=== PATIENT | female | born 1965 | race African-American/Black ===

== ENCOUNTER 2019-03-17 14:27 | Inpatient (IN) ==
[2019-03-17] MEDS ORDERED: VANCOMYCIN 1 GM/NS 1 GM/250 ML IVPB IV ONE (14:49)
[2019-03-17] MEDS ORDERED: NS 1,000 ML IV ONE ×3 (14:49→19:14)
[2019-03-17] MEDS ORDERED: NS 500 ML IV ONE ×2 (14:49→15:23)
[2019-03-17] MEDS ORDERED: PITRESSIN 40 UNIT in NS 100 ML IV SCH (15:30)
[2019-03-17] MEDS ORDERED: EPINEPHRINE 8 MG in D5W 250 ML IV SCH (15:30)
[2019-03-17] MEDS ORDERED: LEVOPHED 8 MG in D5 1/2 NS 250 ML IV SCH (15:30)
--- NOTE | 2019-03-17 15:30 | Diag Imaging Result Doc PS360 ---
EXAM: CHEST-1 VIEW HISTORY: Sepsis protocol TECHNIQUE: Single view COMPARISON: 08/10/2010 FINDINGS: The lungs are well expanded. The heart is not enlarged. The vessels are not distended. There are no infiltrates. No effusion identified. IMPRESSION: No pneumonia Electronically signed by Jaswinder Roque 03/17/2019 3:28 PM
[2019-03-17 15:50] LABS: URINE SOURCE CATH
[2019-03-17 15:54] LABS: BILIRUBIN URINE SMALL (NEGATIVE); BLOOD URINE MODERATE (NEGATIVE); COLOR YELLOW; GLUCOSE URINE NEGATIVE (NEGATIVE); KETONE URINE NEGATIVE (NEGATIVE); LEUKOCYTES URINE LARGE (NEGATIVE); NITRITE URINE NEGATIVE (NEGATIVE); PROTEIN URINE 200 mg/dL (NEGATIVE); SP GRAVITY URINE 1.012; TURBIDITY URINE HAZY (CLEAR); UROBILINOGEN URINE 4 mg/dL (NORMAL)
[2019-03-17 15:57] LABS: BASO# 0.02 X1000 (0.0-0.2); BASO% 0.1 % (0.0-0.8); EOS# 0.06 X1000 (0.0-0.7); EOS% 0.4 % (0.0-10.0); HEMATOCRIT 39.8 % (37.0-47.0); HEMOGLOBIN 12.9 g/dL (12.0-16.0); IMM GRAN# 0.21 X1000 (0.0-0.04); IMM GRAN% 1.5 % (0.0-0.5); LYMPH# 1.38 X1000 (1.2-3.4); LYMPH% 9.6 % (20.5-51.1); MCHC 32.4 g/dL (33-37); MCV 83.4 FL (81-99); MONO# 1.01 X1000 (0.11-0.59); MPV 10.7 FL (7.4-10.4); NEUT% 81.4 % (42.2-75.2); PLT 223 X1000 (130-400); RBC 4.77 XMIL (4.2-5.4); WBC 14.38 X1000 (4.8-10.8)
[2019-03-17 15:57] LABS: UR EPITHELIAL CELLS <10 /HPF (<10); URINE BACTERIA 4+ /HPF; URINE WBC TNTC /HPF (<10)
[2019-03-17] MEDS ORDERED: MORPHINE IV ONE (16:22)
[2019-03-17 16:24] LABS: ALB/GLOB RATIO 0.9; ALBUMIN 3.2 g/dL (3.5-5.0); CREATININE 1.5 mg/dL (0.5-0.9); TOTAL BILIRUBIN 2.36 mg/dL (0.20-1.00); TOTAL PROTEIN 6.9 g/dL (6.3-8.3)
[2019-03-17 16:24] LABS: URINE CASTS NONE SEEN; URINE CRYSTALS NONE SEEN; URINE SMALL ROUND CELLS TRANS PRESENT; URINE YEAST NONE SEEN
[2019-03-17 16:26] LABS: POTASSIUM 2.5 mmol/L (3.5-5.1)
[2019-03-17] MEDS ORDERED: POTASSIUM CHLORIDE 20% LIQUID PO ONE (16:28)
[2019-03-17 16:33] LABS: INR 1.27; PROTIME 16.1 Seconds (11.0-16.0)
[2019-03-17 16:34] LABS: PTT 35.1 Seconds (22.3-41.8)
[2019-03-17 16:43] LABS: CK INDEX 0.8 (0.0-2.5); CK-MB 1.77 ng/mL (0.0-5.0)
[2019-03-17] MEDS ORDERED: MAXIPIME 2 GM in NS 100 ML IV ONE (17:00)
--- NOTE | 2019-03-17 17:43 | PROVIDER DOCUMENTATION ---
This chart was entered by Fatuma Beasley Scribe, acting as scribe for Remberto Head MD. HPI-Abdominal Pain/GI Problem - General Chief Complaint: Abdominal Pain Stated Complaint: FEMALE /WEAKNESS Time Seen by Provider: 03/17/19 14:37 Source: patient, EMS ([facility]) Allergies/Adverse Reactions: Patient Allergies Allergy/AdvReac Type Severity Reaction Status Date / Time No Known Allergies Allergy Verified 03/17/19 15:50 - History of Present Illness-ABD Nature of Presenting Problems: 54 yobf presents to the ed via ems with c/o UTI sx for 4 days. pt sts has dysuria, hematuria, lumbar back pain and suprapubic pain, fever, chills, n/v/d, fatigue and weakness. pt sts had a dr appointment but missed it "I was just so tired doc" Abdominal Pain Onset Location: reports: suprapubic Pain Radiation: reports: back Quality of Pain: reports: aching, burning Severity in ED: reports: moderate Onset/Duration: reports: 4 days ago Timing: reports: still present, constant, getting worse Activities at Onset: reports: light activity Exposure to sick contacts?: No Modifying Factors: worse with: urinating Associated Symptoms: reports: back/neck pain, diarrhea, fatigue, fever/chills, genitourinary problems, malaise, muscle aches, nausea, vomiting, weakness. denies: chest pain, dizziness, headaches, shortness of breath, trouble walking Last BM: last night Dark Stools Present?: reports: none noticed Rectal Bleeding: reports: none # of Diarrhea Episodes: 3 Rectal Pain: reports: none # of Vomiting Episodes: 2 Bruising or Bleeding Gums?: No Similar Symptoms Previously?: Yes (frequent UTI) Recently seen or treated by another doctor?: No Review of Systems - Adult - REVIEW OF SYSTEMS - ADULT Constitutional: reports: see HPI, chills, fever, fatique Eyes: reports: no symptoms reported Ears, Nose, Mouth & Throat: reports: no symptoms reported Cardiovascular: denies: chest pain, palpitations Respiratory: denies: cough, shortness of breath, wheezing Gastrointestinal: reports: see HPI, abdominal pain (suprapubic), diarrhea, nausea, vomiting Genitourinary: reports: see HPI, dysuria, frequent UTI's, hematuria Musculoskeletal: reports: see HPI, back pain. denies: neck pain Integumentary: reports: no symptoms reported Neurological: denies: dizziness/vertigo, headache/migraines Psychiatric: reports: no symptoms reported Endocrine: reports: no symptoms reported Hematologic/Lymphatic: reports: no symptoms reported Allergic/Immunologic: reports: no symptoms reported All Other Systems: Reviewed and Negative Past History - Adult - PAST MEDICAL HISTORY-ADULT Review of Records: reports: Old Records Reviewed, Nursing Assessment Review, Medications Reviewed, Social history reviewed & non-contributory. Major Childhood Illnesses: reports: denies history Cardiovascular: reports: HTN, hyperlipidemia Respiratory: reports: denies history Gastrointestinal: reports: Crohn's, GERD Obstetrical/Gynecological: reports: denies history Genitourinary: reports: denies history Musculoskeletal: reports: denies history Neurological: reports: denies history Psychiatric: reports: denies history Endocrine/Immune: reports: denies history Other Conditions: reports: denies history - PRIOR SURGERIES/PROCEDURES Surgical/Procedure History: reports: colonoscopy, - IMMUNIZATION STATUS Childhood Immunizations: See Nurse Assessment Flu Vaccine: See Nurse Assessment - FAMILY HISTORY Family History: reviewed, not pertinent - SOCIAL HISTORY Smoking: denies Substance Use: denies Living Situation: family Physical Exam-General - PHYSICAL EXAM-ADULT Initial Vital Signs Reviewed: Yes (temp-102.8 HR-110 pulse Ox-93% A) - CONSTITUTIONAL General Appearance: appears well, alert, no apparent distress, obese - EYES Eyes: PERRL/EOMI, pink conjunctivae - HEAD, EARS, NOSE, MOUTH & THROAT HENMT: moist mucous membranes - NECK Neck: non-tender, full range of motion, supple, normal inspection - RESPIRATORY Respiratory: chest non-tender, lungs clear, normal breath sounds - CARDIOVASCULAR Cardiovascular: tachycardia (110) - CHEST (BREASTS) Chest/Breast: deferred - GASTROINTESTINAL (ABDOMEN) Abdominal Exam: normal bowel sounds, soft, tenderness (suprapubic) - GENITOURINARY Female Genitalia/Pelvic Exam: deferred, other (c/o hematuria and dysuria) Rectal Exam: deferred Hemoccult Exam: deferred - LYMPHATIC Lymphatic: no adenopathy - MUSCULOSKELETAL Back Exam: normal inspection, no CVA tenderness, no vertebral tenderness, other (lumbar pain) Extremity: normal range of motion, non-tender, normal inspection, no pedal edema , no calf tenderness, normal capillary refill - SKIN Integumentary: normal color, normal turgor, warm/dry - NEUROLOGIC Neurologic: grossly normal - PSYCHIATRIC Psych/Mental Status: normal mood/affect, normal thought content, normal thought process, oriented x 3 Progress - PLAN OF CARE/RESULTS Progress/Plan/Lab Results: Vital Signs - 8 hr 03/17/19 14:34 03/17/19 14:40 Temperature 102.8 F H 102.4 F H Pulse Rate 110 H 111 H Respiratory Rate 20 16 Blood Pressure 113/76 125/81 O2 Sat by Pulse Oximetry 93 L 98 Orders Category Date Time Status Cardiac Monitoring DIRECTED Care 03/17/19 14:49 Active IV Insertion ORDERED Care 03/17/19 14:49 Active IV Insertion ORDERED Care 03/17/19 14:49 Active Intake and Output-Strict ORDERED Care 03/17/19 14:49 Active Notify MD of + Sepsis Screen NOW Care 03/17/19 14:49 Active Notify MD/PA/EDUCATION ASSISTANT for exam NOW Care 03/17/19 14:49 Active Notify Physician As Ordered Care 03/17/19 14:49 Active Repeat Vital Signs .Blood Pressure Care 03/17/19 14:49 Active Repeat Vital Signs .Heart Rate Care 03/17/19 14:49 Active Repeat Vital Signs .Oxygen Saturation Care 03/17/19 14:49 Active Repeat Vital Signs .Respiratory Rate Care 03/17/19 14:49 Active Repeat Vital Signs .Temp Care 03/17/19 14:49 Active CHEST-1 VIEW [RAD] Stat Exams 03/17/19 14:49 Ordered BLOOD CULTURE [BLDCUL] Stat Lab 03/17/19 14:49 Uncollected CBC WITH DIFF [HEME] Stat Lab 03/17/19 14:49 Uncollected CK PROFILE [SP CHEM] Stat Lab 03/17/19 14:49 Uncollected COMPREHENSIVE METABOLIC PANEL [CHEM] Stat Lab 03/17/19 14:49 Uncollected LACTATE, PLASMA [CHEM] Q3H Lab 03/17/19 15:00 Uncollected LACTATE, PLASMA [CHEM] Q3H Lab 03/17/19 18:00 Uncollected LACTATE, PLASMA [CHEM] Q3H Lab 03/17/19 21:00 Uncollected LACTATE, PLASMA [CHEM] Timed Lab 03/17/19 14:49 Uncollected PROTIME WITH INR [COAG] Stat Lab 03/17/19 14:49 Uncollected PTT [COAG] Stat Lab 03/17/19 14:49 Uncollected TROPONIN T Stat Lab 03/17/19 14:49 Uncollected URINALYSIS W/POSS RFLX CULT [URINALYSIS] Stat Lab 03/17/19 14:49 Uncollected 0.9% Sodium Chloride Inj [Ns] 1,000 ml Med 03/17/19 14:49 Discontinued IV As Directed mls/hr 0.9% Sodium Chloride Inj [Ns] 500 ml Med 03/17/19 14:49 Discontinued IV 999 mls/hr CefEPIME [Maxipime] 2 gm Med 03/17/19 14:49 Ordered 0.9% Sodium Chloride Inj [Ns] 100 ml IV NOW Vancomycin 1 gm/Ns Med 03/17/19 14:49 Active 1 gm in 250 ml IV NOW Oxygen Device Stat Oth 03/17/19 14:49 Active Result Diagrams: 03/17/19 15:38 03/17/19 15:38 - REASSESSMENT Reassessment #1 Time Reassessed: 17:33 Status: improving - XRAY 1 XRAY: Bilateral XRAY Study: Chest Impression: See EMR Report (EXAM: CHEST-1 VIEW HISTORY: Sepsis protocol TECHNIQUE: Single view COMPARISON: 08/10/2010 FINDINGS: The lungs are well expanded. The heart is not enlarged. The vessels are not distended. There are no infiltrates. No effusion identified. IMPRESSION: No pneumonia Electronically signed by Jaswinder Roque 03/17/2019 3:28 PM 03/17/19 1528 Interpreting Physician: Jaswinder Roque MD Dictated Date/Time: 03/17/19 1527 cc: Remberto Head MD;) - CONSULTS/PCP/HOSPITALIST Notification #1 *Consult/PCP/Hospitalist*: dr cohen for dr glover pt Time Discussed: 17:33 Consult Disposition: Admit Departure - Departure Date of Disposition Decision: 03/17/19 Time of Disposition Decision: 15:00 DIAGNOSIS: Pyelonephritis, Hypokalemia Disposition: ADMITTED INPATIENT 09 Certified Medical Emergency: Emergent Condition: Good Referrals and Follow-Ups: Alisa Glover MD [Primary Care Provider] - - Critical Care Note This patient required my direct & personal management of CC.: Yes Total Time (mins): 38 Critical Care Statement: This patient required my direct personal management to treat or rule out processes, the absence of which, could potentiallly result in sudden, clinically significant life or limb threatening deterioration. Attestation - Physician/ YVETTE Attestation Patient care was provided by Advanced Practice Provider:: No The physician spent face to face time with patient:: Yes Advanced Practice Provider documentation review:: Supervising physician onsite and consulted in the evaluation and care of this patient. The physician did have a face to face encounter with the patient. This chart was documented by the indicated scribe, (Fatuma Beasley Scribe) and accurately reflects the services I performed and decisions made by me, Remberto Head MD, as attested by the provider's signature.
[2019-03-17] MEDS ORDERED: ZOFRAN IV PRN (19:14)
--- NOTE | 2019-03-17 19:58 | HISTORY AND PHYSICAL ---
HISTORY OF PRESENT ILLNESS: Ms. Lugo who is a 54-year-old female started getting sick since yesterday. She had some fever with chills. She has severe dysuria. This morning she noticed some pus and blood in the urine, and the temperature went up, and she came to the emergency room this afternoon. She was found to have acute urinary tract infection. She was having very elevated white count and was very septic when she came to the emergency room. PAST SURGICAL HISTORY: Reveals history of 2 sections. SOCIAL HISTORY: She is a nonsmoker; however, she drinks some red wine 3 times a week. She never gets drunk. ALLERGIES: She is not allergic to any medications. PAST MEDICAL HISTORY: She has a history of hypertension, hyperlipidemia, and history of severe anxiety with depression. She is seeing a psychiatrist. MEDICATIONS: She has been on Pristiq 50 mg daily as well as on lamotrigine 25 mg once a day. Her other medications include atenolol with the diuretic once a day, potassium daily, Nexium 40 mg daily, pravastatin 40 mg daily. REVIEW OF SYSTEMS: Other than fever, generalized weakness, which is from hypokalemia according to her, is noncontributory. PHYSICAL EXAMINATION: GENERAL: The patient is alert, oriented. VITAL SIGNS: Reveal temperature when she came in it was 102, blood pressure 136/77, O2 saturation was 93, respiratory rate 18 per minute. HEENT: Head normocephalic. Pupils PERRLA. Fundus examination not done. NECK: Supple. JVP normal. ENT examination unremarkable. There is no evidence of lymphadenopathy, thyroid enlargement, pedal edema, calf tenderness, anemia, cyanosis or clubbing. Pedal pulses were felt. BREAST EXAM: Not done. CHEST: Normal to inspection. LUNGS: Clear on auscultation. PMI in the normal position. HEART: Sounds normal. No murmur, gallop or rub noted. ABDOMEN: Nondistended. Hernial orifices normal. There is no guarding or rigidity, free fluid, masses, or organomegaly. Bowel sounds normal. There is definite tenderness in the suprapubic area as well as left lower quadrant of abdomen. RECTAL EXAM: Deferred. PELVIC EXAM: Deferred at the present time. CENTRAL NERVOUS SYSTEM: Higher functions normal. Cranial nerves normal. Motor and sensory system examination unremarkable. Deep tendon reflexes normal. Plantars downgoing. Skull and spine examination normal for age. No cerebellar signs or signs of meningeal irritation on locomotor exam. SKIN EXAM: Unremarkable. CLINICAL IMPRESSION: The patient is very septic from acute urinary tract infection. This could be pyelonephritis or acute cystitis. She has history of hypertension, severe hypokalemia, history of depression, anxiety with depression under care of psychiatrist and hyperlipidemia as well as hypertension. PLAN: After getting cultures at the present time, continue the Rocephin and depending on the culture, we may have to change antibiotics. She is a patient of Dr. SALOME Martin. cc: Kulwinder Aggarwal MD
[2019-03-17] MEDS: ROCEPHIN 1 GM in NS 50 ML IV SCH (20:39)
[2019-03-17] MEDS: MORPHINE IV PRN (20:42)
[2019-03-17] MEDS: LOVENOX SUBQ SCH (22:29)
[2019-03-17] MEDS: KLOR-CON PO SCH (22:29)
[2019-03-17] MEDS ORDERED: TYLENOL PO PRN (23:46)
[2019-03-18] MEDS: NS + KCL 20 MEQ 1,000 ML IV SCH ×2 (00:28→17:04)
[2019-03-18 07:58] LABS: CALCIUM 7.9 mg/dL (8.8-10.2); CREATININE 1.4 mg/dL (0.5-0.9); POTASSIUM 3.2 mmol/L (3.5-5.1)
--- NOTE | 2019-03-18 09:33 | Diag Imaging Result Doc PS360 ---
CT RENAL STONE SEARCH - 03/18/2019 INDICATION: Kidney stone left COMPARISON: 08/04/2010 FINDINGS: The lung bases are clear and the heart size is normal. There is some minimal linear atelectasis in the lower lobes. There are numerous phleboliths adjacent to the ureters bilaterally. No definite ureteral stone. No hydronephrosis or hydroureter. There is significant increase in bilateral perinephric edema/stranding. There is trace pelvic free fluid. Urinary bladder is collapsed. No definite bowel obstruction or inflammation. Bones are intact. IMPRESSION: 1. Small bilateral nonobstructing renal stones. 2. Significant perinephric stranding bilaterally, nonspecific. This could represent bilateral nephritis of uncertain etiology. 3. Trace pelvic free fluid, nonspecific. This exam was performed using automated exposure control, adjustment of mA or kV according to patient size, and/or use of iterative reconstruction technique Electronically signed by Jacob Mejias 03/18/2019 9:30 AM
[2019-03-18] MEDS: KLOR-CON PO SCH ×2 (10:08→20:54)
[2019-03-18] MEDS: HYDROCHLOROTHIAZIDE PO SCH (10:09)
[2019-03-18] MEDS: TENORMIN PO SCH (10:10)
[2019-03-18] MEDS: ROCEPHIN 1 GM in NS 50 ML IV SCH ×2 (10:10→20:55)
[2019-03-18] MEDS: POTASSIUM CHLORIDE 20 MEQ/SWI 20 MEQ/100 ML IVPB IV SCH ×2 (10:10→13:56)
[2019-03-18] MEDS: PRAVACHOL PO SCH (10:10)
[2019-03-18] MEDS: PRISTIQ ER PO SCH (10:10)
[2019-03-18] MEDS: NEXIUM PO SCH (10:11)
[2019-03-18] MEDS: MORPHINE IV PRN ×3 (10:22→20:58)
--- NOTE | 2019-03-18 20:50 | PROGRESS NOTE ---
DATE: 03/18/2019 SUBJECTIVE: A 54-year-old, -[place] female, admitted to the hospital by Dr. Aggarwal yesterday, altered mental status, fever, UTI, possible pyelonephritis on the right side. The patient denies any kidney stones. She started having right flank pain since Thursday. REVIEW OF SYSTEMS: Right leg pain. PAST MEDICAL HISTORY: Reviewed. PAST SURGICAL HISTORY: Reviewed. MEDICINES: Reviewed. ALLERGIES: Not known. PHYSICAL EXAMINATION: Temperature is 98.7 degrees, pulse 88, blood pressure 112/64.HEENT: She has a mole that is expanding, superficial, atypical, on the left side of the face. Neck: Supple. Chest: Bilateral air entry. Heart sounds are regular. Belly is soft, obese, tender in the right flank area. No peripheral edema or cyanosis. No obvious deficits. LABORATORY DATA: White cell count 14.3, hematocrit 39.8, platelets 223,000. PT 16, INR 1.2. Sodium 132, potassium 3.2, BUN 14, creatinine 1.4. Urinalysis positive for infection. Urine cultures, blood cultures are pending. ASSESSMENT AND PLAN: 1. Altered mental status due to metabolic encephalopathy. 2. Dehydration, hyponatremia. Intravenous fluids. 3. Hypokalemia. Replace the potassium. 4. Possible pyelonephritis. Currently, receiving IV fluids along with ceftriaxone 1 g q.12. Follow up on urine cultures. 5. Right-sided pyelonephritis. We will follow up on serial CT renal stone search. 6. Deep vein thrombosis prophylaxis with Lovenox. 7. Chronic anxiety, depression. Continue the Effexor. 8. Hypertension. On Tenormin and hydrochlorothiazide. 9. Hyperlipidemia. On Pravachol. 10. History of Crohn's disease. Mild, stable. Under the care of Dr. Gamboa. We will repeat the labs in the morning. I spoke of the CT scan findings to the patient. Obviously, she had bilateral nonobstructive kidney stones, no hydronephrosis. Will follow up over the weekend and repeat the labs on Thursday. LEVEL OF DOCUMENTATION: 35 minutes. cc: MD Kulwinder Johnson MD
[2019-03-18] MEDS: LOVENOX SUBQ SCH (20:59)
[2019-03-19] MEDS: NS + KCL 20 MEQ 1,000 ML IV SCH ×3 (06:17→22:53)
[2019-03-19 06:22] LABS: BASO# 0.01 X1000 (0.0-0.2); BASO% 0.1 % (0.0-0.8); EOS# 0.09 X1000 (0.0-0.7); EOS% 0.9 % (0.0-10.0); HEMATOCRIT 32.1 % (37.0-47.0); HEMOGLOBIN 10.4 g/dL (12.0-16.0); IMM GRAN# 0.05 X1000 (0.0-0.04); IMM GRAN% 0.5 % (0.0-0.5); LYMPH# 1.14 X1000 (1.2-3.4); MCH 26.7 PG (27-31); MCHC 32.4 g/dL (33-37); MCV 82.5 FL (81-99); MONO# 1.13 X1000 (0.11-0.59); MONO% 10.9 % (1.7-9.3); MPV 10.9 FL (7.4-10.4); NEUT# 7.98 X1000 (1.4-6.5); NEUT% 76.6 % (42.2-75.2); PLT 236 X1000 (130-400); RBC 3.89 XMIL (4.2-5.4); RDW 11.9 % (11.5-14.5)
[2019-03-19 06:38] LABS: AGAP 12; ALB/GLOB RATIO 0.5; ALBUMIN 2.2 g/dL (3.5-5.0); ALKALINE PHOSPHATASE 125 U/L (32-104); BUN 11 mg/dL (8-22); CALCIUM 7.5 mg/dL (8.8-10.2); CHLORIDE 98 mmol/L (98-107); COSMO 265; CREATININE 1.1 mg/dL (0.5-0.9); ESTIMATED GFR > 60; GLUCOSE 89 mg/dL (70-104); GOT 31 U/L (10-30); GPT 21 U/L (10-36); POTASSIUM 3.2 mmol/L (3.5-5.1); SODIUM 133 mmol/L (136-145); TCO2 23 mmol/L (25-35); TOTAL BILIRUBIN 1.02 mg/dL (0.20-1.00); TOTAL PROTEIN 6.4 g/dL (6.3-8.3)
[2019-03-19] MEDS: HYDROCHLOROTHIAZIDE PO SCH (08:17)
[2019-03-19] MEDS: PRAVACHOL PO SCH (08:17)
[2019-03-19] MEDS: NEXIUM PO SCH (08:18)
[2019-03-19] MEDS: TENORMIN PO SCH (08:18)
[2019-03-19] MEDS: ROCEPHIN 1 GM in NS 50 ML IV SCH ×2 (08:18→20:45)
[2019-03-19] MEDS: KLOR-CON PO SCH ×2 (08:18→20:46)
[2019-03-19] MEDS: PRISTIQ ER PO SCH (08:19)
--- NOTE | 2019-03-19 10:58 | PROGRESS NOTE ---
DATE: 03/19/2019 Vital signs stable with temperature 98.5 degrees, heart rate 90, respiration 18, blood pressure 124/67, O2 saturation on room air 95%. Blood culture is growing gram-negative rods, and also urine culture is growing gram-negative rods. ID and sensitivities are pending. She is currently on Rocephin IV. She is feeling a little better than when she came in. Appetite is improving. PLAN: Continue intravenous antibiotics. She is up out of bed some to go to the bathroom. Continue intravenous antibiotics and await culture results. cc: MD Kulwinder Stevenson MD
[2019-03-19] MEDS: MORPHINE IV PRN ×2 (18:28→22:09)
[2019-03-19] MEDS: LOVENOX SUBQ SCH (20:46)
[2019-03-20] MEDS: HYDROCHLOROTHIAZIDE PO SCH (09:52)
[2019-03-20] MEDS: ROCEPHIN 1 GM in NS 50 ML IV SCH ×3 (09:52→20:09)
[2019-03-20] MEDS: KLOR-CON PO SCH ×3 (09:52→20:09)
[2019-03-20] MEDS: TENORMIN PO SCH (09:54)
[2019-03-20] MEDS: PRISTIQ ER PO SCH (09:54)
[2019-03-20] MEDS: PRAVACHOL PO SCH (09:54)
[2019-03-20] MEDS: NEXIUM PO SCH (09:54)
[2019-03-20] MEDS: MORPHINE IV PRN ×3 (09:54→19:39)
--- NOTE | 2019-03-20 10:22 | PROGRESS NOTE ---
DATE: 03/20/2019 VITAL SIGNS: Stable with temperature 98.6 degrees, heart rate 76, respirations 19, blood pressure 125/64, O2 saturation on room air 94%. MICROBIOLOGY: Revealed Escherichia coli in urine and blood, sensitive to cephalosporin. PLAN: Continue IV Rocephin. Ambulate as tolerated. cc: MD Kulwinder Stevenson MD
[2019-03-20] MEDS: NS + KCL 20 MEQ 1,000 ML IV SCH ×2 (14:01→16:01)
[2019-03-20] MEDS: LOVENOX SUBQ SCH ×2 (19:41→21:31)
[2019-03-21] MEDS: ROCEPHIN 1 GM in NS 50 ML IV SCH ×2 (08:05→21:24)
[2019-03-21] MEDS: MORPHINE IV PRN ×3 (08:05→18:18)
[2019-03-21] MEDS: PRISTIQ ER PO SCH (08:06)
[2019-03-21] MEDS: KLOR-CON PO SCH ×2 (08:06→21:24)
[2019-03-21] MEDS: TENORMIN PO SCH (08:06)
[2019-03-21] MEDS: HYDROCHLOROTHIAZIDE PO SCH (08:06)
[2019-03-21] MEDS: PRAVACHOL PO SCH (08:06)
[2019-03-21] MEDS: NEXIUM PO SCH (08:06)
[2019-03-21] MEDS: NS + KCL 20 MEQ 1,000 ML IV SCH ×2 (08:09→21:24)
--- NOTE | 2019-03-21 21:22 | PROGRESS NOTE ---
DATE: 03/21/2019 SUBJECTIVE: The patient is little better. Events noted over the weekend. No abdominal pain. REVIEW OF SYSTEMS: None reported. EXAM: Temperature is 97.9 degrees, pulse 66, blood pressure is 124/63, 95% room air.HEENT: Within normal limits. Neck: Supple. No lymphadenopathy. Chest: Bilateral air entry. Belly: Soft, nontender. No obvious deficits. LABS: White cell count 10.4, hematocrit 32, platelets 236,000. Sodium 133, potassium 3.2, chloride 98, BUN 11, creatinine 1.1. LFTs were coming down. Urinalysis positive for infection. Blood cultures, urine cultures are positive for E coli and basically ESBL negative, sensitive to ceftriaxone. ASSESSMENT AND PLAN: 1. Urosepsis, stable. Continue on IV ceftriaxone q.12. 2. IV fluids with potassium. 3. Deep vein thrombosis, gastrointestinal prophylaxis. Continue other medicines for underlying problems and I am going to repeat blood cultures and urine cultures in the morning as well as the labs. LEVEL OF DOCUMENTATION: 25 minutes. cc: MD Kulwinder Johnson MD
[2019-03-21] MEDS: LOVENOX SUBQ SCH (21:25)
[2019-03-22] MEDS: NS + KCL 20 MEQ 1,000 ML IV SCH ×2 (02:17→19:20)
[2019-03-22 07:22] LABS: BASO# 0.08 X1000 (0.0-0.2); BASO% 0.7 % (0.0-0.8); EOS# 0.27 X1000 (0.0-0.7); EOS% 2.3 % (0.0-10.0); HEMOGLOBIN 11.1 g/dL (12.0-16.0); IMM GRAN# 0.24 X1000 (0.0-0.04); LYMPH# 2.29 X1000 (1.2-3.4); LYMPH% 19.5 % (20.5-51.1); MCH 26.7 PG (27-31); MCHC 31.7 g/dL (33-37); MCV 84.1 FL (81-99); MONO% 10.2 % (1.7-9.3); MPV 10.1 FL (7.4-10.4); NEUT# 7.67 X1000 (1.4-6.5); NEUT% 65.3 % (42.2-75.2); PLT 578 X1000 (130-400); RBC 4.16 XMIL (4.2-5.4); RDW 12.6 % (11.5-14.5); WBC 11.75 X1000 (4.8-10.8)
[2019-03-22 07:28] LABS: AGAP 12; ALB/GLOB RATIO 0.5; ALBUMIN 2.5 g/dL (3.5-5.0); ALKALINE PHOSPHATASE 176 U/L (32-104); BUN 12 mg/dL (8-22); CALCIUM 8.6 mg/dL (8.8-10.2); CHLORIDE 104 mmol/L (98-107); COSMO 275; ESTIMATED GFR > 60; GLUCOSE 83 mg/dL (70-104); GOT 51 U/L (10-30); GPT 37 U/L (10-36); POTASSIUM 4.5 mmol/L (3.5-5.1); SODIUM 138 mmol/L (136-145); TCO2 22 mmol/L (25-35); TOTAL PROTEIN 7.3 g/dL (6.3-8.3)
[2019-03-22] MEDS: MORPHINE IV PRN ×4 (07:35→21:21)
[2019-03-22 07:38] LABS: EOS 2 % (1-10); LYMPHS 14 % (21-51); MONO 8 % (1-9); NRBC 1 % (0-0); SEGS 76 % (42-75)
[2019-03-22 07:39] LABS: HYPOCHROM 1+; LARGE PLATELETS 1+
[2019-03-22] MEDS: TENORMIN PO SCH (08:28)
[2019-03-22] MEDS: NEXIUM PO SCH (08:28)
[2019-03-22] MEDS: KLOR-CON PO SCH ×2 (08:28→21:19)
[2019-03-22] MEDS: HYDROCHLOROTHIAZIDE PO SCH (08:28)
[2019-03-22] MEDS: ROCEPHIN 1 GM in NS 50 ML IV SCH ×2 (08:28→21:20)
[2019-03-22] MEDS: PRAVACHOL PO SCH (08:29)
[2019-03-22] MEDS: PRISTIQ ER PO SCH (08:29)
--- NOTE | 2019-03-22 20:35 | PROGRESS NOTE ---
DATE: 03/22/2019 SUBJECTIVE: The patient is anxious to go home. She is doing much better. White cell count is still elevated. OBJECTIVE: On examination, temperature is 98.5 degrees, pulse is 66, blood pressure is stable, 98% on room air. HEENT exam within normal limits. Mole is there on the left cheek. Neck is supple. Chest is clear. Heart sounds are regular. Belly is soft, nontender. Good bowel sounds. LABORATORY DATA: White cell count 11.75, hematocrit 35, platelets 578,000. Sodium 138, potassium 4.5, chloride 104, BUN 12, creatinine 1.0. Elevated liver function tests. Repeat blood cultures and urine cultures are negative. ASSESSMENT AND PLAN: Sepsis with Escherichia coli, extended-spectrum beta-lactamase negative, with kidney stone disease. Continue on intravenous fluids, intravenous antibiotics with ceftriaxone. If the repeat cultures are normal and normal white cell count, we will discharge with p.o. antibiotics for 10 days. Continue present treatment. Level of documentation is 25 minutes. cc: MD Kulwinder Johnson MD
[2019-03-22] MEDS: LOVENOX SUBQ SCH (21:20)
[2019-03-23] MEDS: HYDROCHLOROTHIAZIDE PO SCH (10:25)
[2019-03-23] MEDS: NEXIUM PO SCH (10:26)
[2019-03-23] MEDS: KLOR-CON PO SCH ×2 (10:26→21:25)
[2019-03-23] MEDS: ROCEPHIN 1 GM in NS 50 ML IV SCH ×2 (10:27→21:26)
[2019-03-23] MEDS: TENORMIN PO SCH (10:27)
[2019-03-23] MEDS: PRAVACHOL PO SCH (10:27)
[2019-03-23] MEDS: PRISTIQ ER PO SCH (10:27)
[2019-03-23] MEDS ORDERED: AMBIEN PO ONE (19:49)
[2019-03-23] MEDS: LOVENOX SUBQ SCH (21:25)
--- NOTE | 2019-03-23 21:44 | PROGRESS NOTE ---
DATE: 03/23/2019 SUBJECTIVE: The patient is anxious to go home. Feeling better. Repeat blood cultures, urine cultures are pending. PHYSICAL EXAMINATION: Temperature is 98 degrees. Vitals are stable.HEENT: Within normal limits. Neck: Supple. No lymphadenopathy. No goiter. Chest: Bilateral air entry. Heart: Sounds are regular. Abdomen: Belly is soft, nontender. Neurologic: No obvious deficits. LABORATORIES: White cell count 11, hematocrit 35, platelets 578,000. Increase of the LFTs. Repeat blood cultures are still pending. ASSESSMENT AND PLAN: 1. Escherichia coli sepsis. Stable. If the repeat blood cultures are negative, consider discharge home on Levaquin 500 daily about 10 days. 2. Kidney stone disease. Continue on Urocit, potassium and continue IV ceftriaxone. 3. Deep vein thrombosis and gastrointestinal prophylaxis as per order sheet. LEVEL OF DOCUMENTATION: 25 minutes. cc: MD Kulwinder Johnson MD
[2019-03-24 08:04] VITALS: BP 138/68
[2019-03-24] MEDS: HYDROCHLOROTHIAZIDE PO SCH (09:21)
[2019-03-24] MEDS: PRISTIQ ER PO SCH (09:22)
[2019-03-24] MEDS: NEXIUM PO SCH (09:22)
[2019-03-24] MEDS: PRAVACHOL PO SCH (09:22)
[2019-03-24] MEDS: KLOR-CON PO SCH (09:22)
[2019-03-24] MEDS: ROCEPHIN 1 GM in NS 50 ML IV SCH (09:22)
[2019-03-24] MEDS: TENORMIN PO SCH (09:23)
== END 2019-03-24 09:35 | disposition home or self-care (01) | DRG 871 ==
LOC: ED 14:27 → 3N 18:58
PROVIDERS: ADMIT Internal Medicine; ATTEND Internal Medicine